=== PATIENT | female | born 1995 | race African-American/Black ===

== ENCOUNTER 2016-11-15 17:23 | Emergency (ER) | payer OTHER ==
--- NOTE | ~2016-11-15 | EKG ---
PATIENT: ERVIN HONEYCUTT UNIT #: [id number] Ventricular Rate: 74 BPM Atrial Rate: 74 BPM P-R Interval: 122 ms QRS Duration: 86 ms Q-T Interval: 372 ms QTC Calculation(Bezet): 412 ms P [place]: 72 degrees Calculated R [place]: 74 degrees Calculated T [place]: 48 degrees Diagnosis Line: Normal sinus rhythm Diagnosis Line: Normal ECG Diagnosis Line: No previous ECGs available Diagnosis Line: Confirmed by PATSY ALFREDO MD ([id number]) on 11/15/2016 Diagnosis Line: 10:33:37 PM INTERPRETING MD: JUNI VALENCIA
--- NOTE | ~2016-11-15 | CR72 ---
[facility] A Service of [facility] RADIOLOGY TEXT RESULTS PATIENT: ERVIN HONEYCUTT LOCATION: [facility] : [birth year] UNIT #: [id number] AGE: [address]: Brandon Marmolejo MD SEX: F ORDER DR: [id number] [facility] [address] [address] [id number] E MR#: [id number] Acc #: [id number] NAME: ERVIN HONEYCUTT : 1995 SEX: F STUDY DATE/TIME: 11/15/2016 16:52 UNIT: [facility] ROOM: STUDY DESCRIPTION: CR Chest Single View Portable Attending Physician: Brandon Marmolejo M.D. Ordering Physician: Brandon Marmolejo M.D. Primary Care Physician: [facility] MEDICAL IMAGING REPORT This report is preliminary unless electronic signature is present EXAM Chest portable 11/15 COMPARISON 09/26/2008 HISTORY SUPPLIED Chest pain, shortness of breath, congestion and pressure beginning today. FINDINGS A AP portable view is obtained. The heart size is normal and the lungs are clear. CONCLUSION Negative portable chest. Dictated by... Fili Steve M.D. THIS IS AN ELECTRONICALLY VERIFIED REPORT Fili Steve M.D. at 11/17/2016 2:20 PM LELOK/kenneth TD: 11/16/2016 00:55 JOB #: [id number] MEDICAL IMAGING REPORT Page 1 of 1 COPY
[~2016-11-15 17:23] MED LIST: ADVAIR INH; ALBUTEROL17 GM INH; AMOXICILLIN500 M1 PO; CLARITIN10 MG PO; IBUPROFEN PO; KEFLEX PO; QVAR7.3 G1; RONDEC-DM ORAL30 ML PO; SINGULAIR PO; ZITHROMAX PO
[2016-11-15 17:45] LABS: POC - CKMB <1.0 ng/mL (0.0-7.9); POC - TROPONIN <0.05 ng/mL (<=0.05)
== END 2016-11-15 18:57 | disposition home or self-care (01) ==
LOC: CED 17:23
PROVIDERS: Emergency Medicine
DX: J45.909 Unspecified asthma, uncomplicated (principal); R07.89 Other chest pain
CPT/HCPCS: 71010; 82553; 84484; 93005; 99284

== ENCOUNTER 2017-01-02 16:11 | Emergency (ER) | payer OTHER ==
--- NOTE | ~2017-01-02 | CR58 ---
[facility] A Service of [facility] RADIOLOGY TEXT RESULTS PATIENT: ERVIN HONEYCUTT LOCATION: [facility] : [birth year] UNIT #: [id number] AGE: [address]: Twyla Kimbrough MD SEX: F ORDER DR: [id number] [facility] [address] [place], [place] [address] [id number] E MR#: [id number] Acc #: [id number] NAME: ERVIN HONEYCUTT. : 1995 SEX: F STUDY DATE/TIME: 01/02/2017 16:54 UNIT: [facility] ROOM: STUDY DESCRIPTION: CR Cervical Spine 2 or 3 Views Attending Physician: Twyla Kimbrough M.D. Ordering Physician: Twyla Kimbrough M.D. Primary Care Physician: [facility] MEDICAL IMAGING REPORT This report is preliminary unless electronic signature is present EXAM Cervical spine 5 views, 01/02/2017 HISTORY Neck pain status post fall off Hoverboard yesterday. Pain extends to left shoulder. FINDINGS 5 views of the cervical spine show satisfactory preservation of the cervical lordosis. The cervical soft tissues are normal. All anterior and posterior elements in the cervical area are anatomically normal without identifiable fracture, dislocation, malignant lytic or sclerotic change, or arthritis. There is no congenital defect apparent. IMPRESSION Normal cervical spine. Dictated by... Rex Black M.D. THIS IS AN ELECTRONICALLY VERIFIED REPORT Rex Black M.D. at 01/03/2017 10:34 AM ERIN/logan TD: 01/03/2017 03:10 JOB #: [id number] MEDICAL IMAGING REPORT Page 1 of 1 COPY
--- NOTE | ~2017-01-02 | CR243 ---
[facility] A Service of [facility] RADIOLOGY TEXT RESULTS PATIENT: ERVIN HONEYCUTT LOCATION: [facility] : [birth year] UNIT #: [id number] AGE: [address]: Twyla Kimbrough MD SEX: F ORDER DR: [id number] [facility] [address] [place], [place] [address] [id number] E MR#: [id number] Acc #: [id number] NAME: ERVIN HONEYCUTT. : 1995 SEX: F STUDY DATE/TIME: 01/02/2017 16:58 UNIT: [facility] ROOM: STUDY DESCRIPTION: CR Thoracic Spine 3 Views Attending Physician: Twyla Kimbrough M.D. Ordering Physician: Twyla Kimbrough M.D. Primary Care Physician: [facility] MEDICAL IMAGING REPORT This report is preliminary unless electronic signature is present EXAM Thoracic spine 3 views, 01/02/2017 HISTORY Mid back pain, neck pain Hoverboard. FINDINGS AP and lateral examination of the dorsal segment shows normal mineralization and a satisfactory anatomical dorsal kyphosis. All body heights, interspaces, and posterior elements are normal anatomically without any indication of malignancy, trauma, unusual paraspinal soft tissue density mass, or congenital defect. IMPRESSION Normal thoracic spine. Dictated by... Rex Black M.D. THIS IS AN ELECTRONICALLY VERIFIED REPORT Rex Black M.D. at 01/03/2017 10:37 AM ERIN/logan TD: 01/03/2017 02:58 JOB #: [id number] MEDICAL IMAGING REPORT Page 1 of 1 COPY
== END 2017-01-02 18:16 | disposition home or self-care (01) ==
LOC: CED 16:11
DX: S29.012A Strain of muscle and tendon of back wall of thorax, initial encounter (principal); V00.138A Other skateboard accident, initial encounter; Y92.009 Unspecified place in unspecified non-institutional (private) residence as the place of occurrence of the external cause
CPT/HCPCS: 72040; 72072; 99284

== ENCOUNTER 2017-02-08 23:30 | Emergency (ER) | payer OTHER ==
[2017-02-09 02:21] LABS: BASOPHIL% 0.7 % (0-2.5); EOSINOPHIL# 0.1 X10e3 (0-0.7); HEMATOCRIT 37.2 % (35.0-45.0); HEMOGLOBIN 11.8 gm/dL (12.0-16.0); LYMPHOCYTE# 2.9 X10e3 (1.0-3.5); LYMPHOCYTE% 44.3 % (17.0-45.0); MEAN CELL VOLUME 83.9 FL (83-96); MEAN CORPUSCULAR HEMOGLOBIN 26.6 PG (28-34); MEAN CORPUSCULAR HGB CONC 31.7 g/dL (30-36); MONOCYTE# 0.5 X10e3 (0-1.0); MONOCYTE% 7.7 % (3.0-12.0); NEUTROPHIL# 2.9 X10e3 (1.5-7.1); NEUTROPHIL% 45.3 % (40-75); PLATELET COUNT 227 X10e3 (140-420); RED BLOOD COUNT 4.44 X10e (3.90-5.30); RED CELL DISTRIBUTION WIDTH 13.5 % (11.0-15.5); WHITE BLOOD COUNT 6.5 X10e3 (4.0-10.5)
[2017-02-09 02:22] LABS: DIFF IND NO
== END 2017-02-09 02:55 | disposition home or self-care (01) ==
LOC: CED 23:30
PROVIDERS: Emergency Medicine
DX: K62.5 Hemorrhage of anus and rectum (principal); J45.909 Unspecified asthma, uncomplicated
CPT/HCPCS: 85025; 99283

== ENCOUNTER 2017-03-17 13:44 | Emergency (ER) | payer OTHER ==
[~2017-03-17] VITALS: Ht 162.6 cm; Wt 49.9 kg
== END 2017-03-17 15:45 | disposition left against medical advice (07) ==
LOC: CED 13:44 → CFTX 13:44 → CED 13:50
DX: Z53.21 Procedure and treatment not carried out due to patient leaving prior to being seen by health care provider (principal)

== ENCOUNTER 2017-03-20 23:17 | Emergency (ER) | payer OTHER ==
[~2017-03-20] VITALS: Ht 160 cm; Wt 49.9 kg
--- NOTE | ~2017-03-20 | CR72 ---
[facility] A Service of [facility] & [facility] RADIOLOGY TEXT RESULTS PATIENT: ERVIN HONEYCUTT LOCATION: [facility] : [birth year] UNIT #: [id number] AGE: [address]: Jose Pa MD SEX: F ORDER DR: [id number] [facility] [address] [place], [place] [address] [id number] E MR#: [id number] Acc #: [id number] NAME: ERVIN HONEYCTUT. : 1995 SEX: F STUDY DATE/TIME: 03/21/2017 00:50 UNIT: [facility] ROOM: STUDY DESCRIPTION: CR Chest Single View Portable Attending Physician: Jose Pa M.D. Ordering Physician: Ankit Fuller D.O. Primary Care Physician: [facility] MEDICAL IMAGING REPORT This report is preliminary unless electronic signature is present EXAM Portable chest, 03/21 at 00:50. INDICATIONS Chest pain and shortness of air tonight. History of asthma. COMPARISON 11/15/2016 FINDINGS A single AP portable view of the chest shows both lungs to be clear. The heart is normal in size. The mediastinal contour is normal. No significant bone abnormalities are seen. IMPRESSION Normal portable chest. Dictated by... Jose Conley Jr., M.D. THIS IS AN ELECTRONICALLY VERIFIED REPORT Jose Conley Jr., M.D. at 03/22/2017 6:02 AM NURA/tea TD: 03/21/2017 09:39 JOB #: [id number] MEDICAL IMAGING REPORT Page 1 of 1 COPY
--- NOTE | ~2017-03-20 | EKG ---
PATIENT: ERVIN HONEYCUTT UNIT #: [id number] Ventricular Rate: 80 BPM Atrial Rate: 80 BPM P-R Interval: 124 ms QRS Duration: 78 ms Q-T Interval: 358 ms QTC Calculation(Bezet): 412 ms P [place]: 74 degrees Calculated R [place]: 69 degrees Calculated T [place]: 41 degrees Diagnosis Line: Normal sinus rhythm with sinus arrhythmia Diagnosis Line: Possible Left atrial enlargement Diagnosis Line: Borderline ECG Diagnosis Line: When compared with ECG of 15-NOV-2016 16:51, Diagnosis Line: No significant change was found Diagnosis Line: Confirmed by GATITO CANAS MD ([id number]) on Diagnosis Line: 03/21/2017 3:28:20 PM INTERPRETING MD: SRIRAM
[2017-03-21 02:56] LABS: BASOPHIL# 0.1 X10e3 (0-0.3); BASOPHIL% 0.7 % (0-2.5); EOSINOPHIL# 0.1 X10e3 (0-0.7); EOSINOPHIL% 1.4 % (0.0-7.0); HEMATOCRIT 37.6 % (35.0-45.0); HEMOGLOBIN 12.5 gm/dL (12.0-16.0); LYMPHOCYTE# 2.3 X10e3 (1.0-3.5); LYMPHOCYTE% 31.9 % (17.0-45.0); MEAN CELL VOLUME 81.4 FL (83-96); MEAN CORPUSCULAR HGB CONC 33.2 g/dL (30-36); MEAN PLATELET VOLUME 7.5 FL (6.5-11.5); MONOCYTE# 0.3 X10e3 (0-1.0); MONOCYTE% 4.6 % (3.0-12.0); NEUTROPHIL# 4.4 X10e3 (1.5-7.1); NEUTROPHIL% 61.4 % (40-75); PLATELET COUNT 234 X10e3 (140-420); RED BLOOD COUNT 4.61 X10e (3.90-5.30); RED CELL DISTRIBUTION WIDTH 13.3 % (11.0-15.5); WHITE BLOOD COUNT 7.1 X10e3 (4.0-10.5)
[2017-03-21 03:04] LABS: DIFF IND NO
[2017-03-21 03:08] LABS: POC - CKMB <1.0 ng/mL (0.0-7.9); POC - TROPONIN <0.05 ng/mL (<=0.05)
[2017-03-21 03:12] LABS: PROTHROMBIN TIME (PATIENT) 11.3 SECONDS (10.0-11.7)
[2017-03-21 03:34] LABS: ALBUMIN SERUM 4.4 g/dL (3.5-5.0); BILIRUBIN,TOTAL 0.2 mg/dL (0.2-2.0); BUN/CREATININE RATIO 11.66; CALCIUM SERUM 8.9 mg/dL (8.4-10.2); CREATININE SERUM 0.6 mg/dL (0.6-1.4); POTASSIUM 3.6 mmol/L (3.5-5.1); PROTEIN TOTAL SERUM 7.5 g/dL (6.0-8.3)
[2017-03-21 03:38] LABS: BILIRUBIN, DIRECT 0.1 mg/dL (0.0-0.2); BILIRUBIN,INDIRECT 0.1 mg/dL (0.0-0.9)
[2017-03-21 05:19] LABS: POC - CKMB <1.0 ng/mL (0.0-7.9); POC - TROPONIN <0.05 ng/mL (<=0.05)
== END 2017-03-21 05:46 | disposition home or self-care (01) ==
LOC: CED 23:17
PROVIDERS: Emergency Medicine
DX: R07.89 Other chest pain (principal)
CPT/HCPCS: 36415; 71010; 80048; 80076; 82553; 84484; 84703; 85025; 85610; 85730; 93005; 96374; 99285; J1885